=== PATIENT | female | born 2000 | race Two or more races ===

== ENCOUNTER 2025-01-31 02:29 | Emergency (ER) | payer OTHER ==
[~2025-01-31] VITALS: Ht 157.5 cm; Wt 54.4 kg
[2025-01-31] MEDS ORDERED: CEFAZOLIN SODIUM 1,000 MG VIAL IV STA (02:55)
[2025-01-31] MEDS ORDERED: DEXAMETHASONE SODIUM PHOSPHATE 4 MG/ML VIAL IV STA (02:56)
[2025-01-31] MEDS ORDERED: SODIUM CL 0.9% 25 ML IV.SOLN. IV STA (02:56)
[2025-01-31] MEDS ORDERED: CEFAZOLIN SODIUM 1,000 MG VIAL ONE ×2 (03:40→03:59)
[2025-01-31] MEDS ORDERED: DEXAMETHASONE SODIUM PHOSPHATE 4 MG/ML VIAL ONE (03:40)
[2025-01-31] MEDS ORDERED: LIDOCAINE HCL 1% 10ML VIAL ONE (04:17)
[2025-01-31 04:35] LABS: BASO % 0.2 % (0.1-1.2); EOS # 0.00 (0.04-0.54); EOS % 0.0 % (0.7-7.0); LYMPH # 0.91 (1.18-3.74); LYMPH % 10.5 % (19.3-53.1); MEAN PLATELET VOLUME 9.10 fl (9.4-12.4); MONO # 0.47 (0.24-0.82); MONO % 5.4 % (4.7-12.5); NEUT # 7.25 (1.56-6.13); NEUT % 83.7 % (34.0-71.1); RED CELL DISTRIBUTION WIDTH 11.8 % (11.6-14.4)
[2025-01-31 04:50] LABS: BUN CREA RATIO 15.0 (7.0-25.0); CREATININE SERUM 0.59 mg/dL (0.55-1.02); GFR 124.19; GLUCOSE FASTING 99.0 mg/dL (65-100); OSMOLALITY SERUM 287.0 MOSM/KG (275-295)
== END 2025-01-31 07:25 | disposition home or self-care (01) ==
LOC: ER 02:29
PROVIDERS: General Practice
DX: S01.121A Laceration with foreign body of right eyelid and periocular area, initial encounter (principal); W18.39XA Other fall on same level, initial encounter; Y93.89 Activity, other specified; Y92.89 Other specified places as the place of occurrence of the external cause; R51.9 Headache, unspecified